=== PATIENT | female | born 1935 | race Caucasian/White ===

== ENCOUNTER → 2016-05-17 | Outpatient (CLI) | payer MEDICARE, OTHER | LOC: KOH-I 05-16 11:00 | DX: N39.0 Urinary tract infection, site not specified (principal); K76.89 Other specified diseases of liver | CPT/HCPCS: 74176 ==

== ENCOUNTER → 2020-05-06 | Outpatient (CLI) | payer MEDICARE, OTHER | LOC: KOH-I 04-22 13:00 | DX: K74.69 Other cirrhosis of liver (principal); K76.9 Liver disease, unspecified | CPT/HCPCS: 74150 ==